=== PATIENT | female | born 2000 | race Caucasian/White ===

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

== ENCOUNTER 2022-04-24 22:24 | Emergency (ER) | payer BC ==
[~2022-04-24] VITALS: Ht 175.2 cm; Wt 77.1 kg
[2022-04-24] MEDS ORDERED: ESTARYLLA 0.251 EACH PO (22:32)
[2022-04-24 23:00] LABS: BILIRUBIN 1+ (Negative); BLOOD 3+ (Negative); CLARITY Turbid (Clear); COLOR Red (Yellow); GLUCOSE Negative (Negative); KETONE Negative (Negative); LEUKO ESTERASE 3+ (Negative); NITRITE Positive (Negative)
[2022-04-24 23:13] LABS: PH 8.5 (4.5-8.0)
[2022-04-24 23:21] LABS: BACTERIA 3+; RBC TNTC rbc/hpf (0-2)
[2022-04-24 23:22] LABS: WBC 31-40 wbc/hpf (0-5)
[2022-04-24] MEDS ORDERED: CEPHALEXIN500 M1 PO (23:52)
[2022-04-24] MEDS ORDERED: PYRIDIUM100 MG PO (23:52)
== END 2022-04-25 01:03 | disposition home or self-care (01) ==
LOC: ED 22:24
PROVIDERS: Emergency Medicine
DX: N39.0 Urinary tract infection, site not specified (principal); Z79.899 Other long term (current) drug therapy; Z96.22 Myringotomy tube(s) status